=== PATIENT | male | born 1950 | race Caucasian/White ===

== ENCOUNTER 2017-02-16 09:29 | Day surgery (SDC) | payer MEDICARE, OTHER ==
--- NOTE | 2017-02-13 09:41 | HP ---
DATE OF SURGERY: 02/13/2017 ADMISSION DIAGNOSIS: Screening. ANTICIPATED PROCEDURE: Colonoscopy. HISTORY OF PRESENT ILLNESS: The patient said it has been 19 years since the last colonoscopy. PAST MEDICAL HISTORY: ALLERGIES: NONE. MEDICATIONS: Lisinopril, amlodipine. PAST SURGICAL HISTORY: None. SOCIAL HISTORY: Negative. FAMILY HISTORY: Negative. REVIEW OF SYSTEMS: Negative. PHYSICAL EXAMINATION: VITAL SIGNS: Normal. CHEST: Clear. COR: Regular. ABDOMEN: No palpable organomegaly or mass. IMPRESSION: The patient requiring screening. PLAN: Colonoscopy.
[2017-02-16] MEDS ORDERED: DEMEROL 50 MG IV ONE (09:30)
[2017-02-16] MEDS ORDERED: VERSED 5 MG/5 ML IV ONE (09:30)
[2017-02-16] MEDS ORDERED: Sodium Chloride 0.9% 1000 ML 1,000 ML IV SCH (09:45)
[2017-02-16 13:15] VITALS: BP 129/74; PULSE 68; O2SAT 97
[2017-02-16] MEDS ORDERED: Lactated Ringers 1,000 ML IV ONE (13:22)
--- NOTE | 2017-02-16 14:02 | OP ---
SURGERY DATE/TIME: 02/16/2017 1140 PREOPERATIVE DIAGNOSIS: Family history. He had a colonoscopy greater than 10 years ago. POSTOPERATIVE DIAGNOSIS: Cold polyp x1. PROCEDURE: Colonoscopic examination. SURGEON: Parrish Bess M.D. SCHOOL OFFICE ASSISTANT: Dr. Omar Pillai ANESTHESIA: IV sedation. COMPLICATIONS: None. CONDITION: Stable. INDICATION: A patient requiring evaluation. DESCRIPTION OF PROCEDURE: Anal digital examination satisfactory. IV sedation provided 15 minutes. The scope was introduced to the cecum. On circumferential withdrawal ascending, hepatic, transverse, splenic, descending. There was one small 5 mm polyp in the colon that was picked up with cold biopsy forceps and removed. The scope withdrawn. The patient tolerated the procedure satisfactorily. PLAN: Follow up in five years.
== END 2017-02-16 13:26 | disposition home or self-care (01) ==
LOC: SDC 09:29
PROVIDERS: ATTEND Surgery
PROC: 0DBN8ZX Excision of Sigmoid Colon, Via Natural or Artificial Opening Endoscopic, Diagnostic (ICD-10-PCS; principal; 2017-02-16)
DX: K63.5 Polyp of colon (principal); Z12.11 Encounter for screening for malignant neoplasm of colon; K57.90 Diverticulosis of intestine, part unspecified, without perforation or abscess without bleeding; Z80.0 Family history of malignant neoplasm of digestive organs
CPT/HCPCS: 88305; J2175; J2250

== ENCOUNTER 2022-08-16 06:02 | Day surgery (SDC) | payer MEDICARE, OTHER ==
[2022-08-16] MEDS ORDERED: Lactated Ringers 1,000 ML IV SCH ×2 (06:30)
[2022-08-16 06:35] VITALS: O2SAT 99
[2022-08-16] MEDS ORDERED: Versed 2 MG/2 ML Injection ONE (06:55)
[2022-08-16] MEDS ORDERED: DIPRIVAN 200 MG/20 ML IV ONE (06:55)
[2022-08-16 08:50] VITALS: BP 142/81; PULSE 67
--- NOTE | 2022-08-16 09:09 | OP ---
SURGERY DATE/TIME: 08/16/2022 0732 PREOPERATIVE DIAGNOSIS: Screening exam. POSTOPERATIVE DIAGNOSIS: Polyps in the transverse colon and rectosigmoid area and sigmoid diverticulosis. PROCEDURE: Colonoscopy with cold forceps biopsy. SURGEON: Dr. Edmonds. ANESTHESIA: MAC. Medications given by anesthesia department. HISTORY: The patient is a 72-year-old white male patient presenting now for colonoscopic evaluation. He was appraised of the risks of the procedure including the risk of perforation, phlebitis, untoward reaction to medication, bleeding and missed lesions. The patient verbalized his understanding and desired to have the procedure performed. DESCRIPTION OF PROCEDURE: The patient was given the medications by the anesthesia department. He had continuous pulse oximetry, ECG monitoring and intermittent blood pressure monitoring during the examination. He was placed in the left lateral decubitus position. A digital rectal examination was performed and revealed normal anal sphincter tone and no masses. The prostate was normal. The flexible Olympus pediatric colonoscope was used to intubate the rectum. A view of the colon was developed sequentially to the cecum. Upon insertion and withdrawal were noted polyps in the transverse colon which were removed using cold forceps to completely destroy the lesion. There was a second one noted in the rectosigmoid area. There was also noted to be moderate sigmoid diverticulosis. After careful inspection the scope was then removed from the patient who tolerated the procedure well and was sent back to OP recovery in good condition. The prep was noted to be good.
== END 2022-08-16 08:40 | disposition home or self-care (01) ==
LOC: SDC 06:02
PROVIDERS: ATTEND Family Medicine
DX: Z12.11 Encounter for screening for malignant neoplasm of colon (principal); D12.7 Benign neoplasm of rectosigmoid junction; D12.3 Benign neoplasm of transverse colon; K57.30 Diverticulosis of large intestine without perforation or abscess without bleeding
CPT/HCPCS: 93005; 99100; J2250; J2704